=== PATIENT | male | born 1985 | race African-American/Black ===

== ENCOUNTER 2022-07-13 03:22 | Emergency (ER) | payer SELFPAY ==
[2022-07-13] VITALS (7 sets, daily range): BP systolic 117–145; BP diastolic 76–100; PULSE 94–124; RESP 18; TEMP 36.9; O2SAT 91–98; BMI 23.2
--- NOTE | 2022-07-13 03:55 | ECG_ITS ---
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 Measurements Intervals [place] Rate: 97 P: 57 NE: 166 QRS: 37 QRSD: 91 T: 47 QT: 306 QTc: 389 Interpretive Statements SINUS RHYTHM No previous ECG available for comparison Electronically Signed On 07-13-2022 17:08:29 CDT by Angel Jerez M.D. [id number]
[2022-07-13] MEDS: sodium chloride 0.9% 1,000 ML 999 ML IV (04:42)
[2022-07-13 04:46] LABS: Basophils % 0.1 %; Eosinophils % 0.3 %; Hematocrit 39.1 % (42.0-52.0); Hemoglobin 12.1 g/dL (11.7-16.6); Lymphocytes # 0.7 10^3/uL (0.8-4.8); Lymphocytes % 10.8 %; Mean Corpuscular HGB Conc 30.9 g/dL (30.0-36.0); Mean Corpuscular Hemoglobin 28.3 pg (28.0-34.0); Mean Corpuscular Volume 91.4 fl (80-94); Mean Platelet Volume 9.2 fL (7.4-10.4); Monocytes # 0.5 10^3/uL (0.2-0.9); Monocytes % 7.3 %; Neutrophils # 5.49 10^3/uL (1.8-7.7); Neutrophils % 81.4 %; Nucleated Red Blood Cells % 0 %; Platelet Count 220 10^3/cmm (130-400); Red Blood Count 4.28 10^6/uL (4.1-5.3); Red Cell Distribution Width 15.2 % (12.1-15.1); White Blood Count 6.8 10^3/uL (4.0-10.0)
--- NOTE | 2022-07-13 05:00 | PC.NURSE ---
patient postictal and uncooperative. Unable to perform EKG at this time. Dr. Dhaliwal notified, aware, and okay with waiting until patient becomes more back to baseline.
--- NOTE | 2022-07-13 05:01 | W.ED.SEIZURE ---
HPI - Seizure General: Chief Complaint: Seizure Stated Complaint: post seizure Time Seen by Provider: 07/13/22 03:24 Source: patient, family and EMS History of Present Illness: HPI Narrative: 37-year-old male with a history of seizure disorder. He was traveling with family back from [place] to [facility] after a of an aunt. He had been driving, and then made a stop at a gas station. A family member began to drive, 20 minutes later, they noticed him shaking in the back of a car. He was not responding to them. He appeared to continue to breathe. Family called 911. The episode lasted about 5 minutes. On EMS arrival the patient was confused and postictal. He was given Ativan 2 mg IM. He presents here quite lethargic. He does answer some simple yes/no questions MD complaint: seizure Onset (ago): minute(s) Description of Episode: loss of consciousness and tonic-clonic movement Duration of episode: 5 -: minutes(s) Witnessed: Yes - by Bystander Trauma: No Seizure History: Yes Possible Precipitating Event: lack of sleep and stress Associated symptoms: Reports confusion; Deny chest pain, fever(s) or short of breath Treatments prior to arrival: benzodiazepines Review of Systems Const: Denies: fever(s) ENMT: Denies: throat pain Card: Denies: chest pain Resp: Denies: dyspnea GI: Denies: abdominal pain Neuro: Reports: headache(s), confusion and seizure-like activity Physical Exam Const: GENERAL APPEARANCE: lethargic and ill appearing (Mild) ORIENTATION/CONSCIOUSNESS: Yes lethargic HENMT: COMMON NORMALS: normocephalic, atraumatic and Normal external nose present HEAD & SCALP: normocephalic and atraumatic FACE & SINUS: normal facial exam and face symmetric NOSE: Normal external nose present and Normal nares present Eye: COMMON NORMALS: Equal, round and reactive pupils present and EOMs intact bilaterally PUPIL: Yes Equal, round and reactive pupils present Neck/C-Spine: GENERAL: Yes trachea midline Chest: CHEST: Yes Symmetrical chest wall rise Resp: COMMON NORMALS: normal respiratory effort, No use of accessory muscles and clear to auscultation bilaterally AUSCULTATION: clear to auscultation bilaterally Cardio: COMMON NORMALS: regular rate and regular rhythm RATE: regular rate RHYTHM: regular rhythm GI: COMMON NORMALS: Normal to inspection, nondistended, normoactive bowel sounds present Extremity: COMMON NORMALS: no pedal edema Neuro: ЕКАТЕРИНА COMA SCALE: document GCS findings Екатерина coma scale eye opening: To sound Hardy coma scale verbal response: Confused Hardy coma scale motor response: Localising Екатерина coma scale total score: 12 SENSORIUM/ORIENTATION: Yes Orientation impaired, Yes lethargic and Yes somnolent CRANIAL NERVES: Yes CN normal except as noted GAIT: Yes Unable to assess gait MOTOR EXAM: Normal motor muscle tone present throughout, Motor abnormalities not present and No Tremors during motor activity present Course Vital Signs: Vital signs: Vital Signs Temperature 98.4 F 07/13/22 03:24 Pulse Rate 100 07/13/22 06:16 Respiratory Rate 18 07/13/22 06:16 Blood Pressure 139/94 07/13/22 06:16 Pulse Oximetry 98 07/13/22 06:16 Oxygen Delivery Me thod Room Air 07/13/22 06:16 MDM - Seizure MDM Narrative Medical decision making narrative: Patient lost control of his bowels during the episode. Patient is quite lethargic following administration of IM Ativan, and being in a postictal state. Researched his home medications. He appears to be taking Keppra. He may or may not of been taking this, as it was last filled last January it appears. He is loaded with 1 g. He is given IV fluids. Labs and head CT are pending. Provided he recovers from his postictal state appropriately, and normal laboratory, he will be allowed discharge. 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 No acute findings. Patient is beginning to wake. He is acting more appropriate. He helped move over to the CT scanner. He is still somewhat tired. He will be allowed discharge in a bit when he awakens some more, so that he may return home. Lab Data 07/13/22 04:40 07/13/22 04:40 Labs: Radiology Impressions Head CT 07/13/22 05:46 IMPRESSION: 1. Chronic infarction seen in the lateral aspect of the right temporal lobe. 2. There are no acute intracranial findings. Laboratory Results WBC 6.8 10^3/uL (4.0-10.0) 07/13/22 04:40 RBC 4.28 10^6/uL (4.1-5.3) 07/13/22 04:40 Hgb 12.1 g/dL (11.7-16.6) 07/13/22 04:40 Hct 39.1 % (42.0-52.0) L 07/13/22 04:40 MCV 91.4 fl (80-94) 07/13/22 04:40 MCH 28.3 pg (28.0-34.0) 07/13/22 04:40 MCHC 30.9 g/dL (30.0-36.0) 07/13/22 04:40 RDW 15.2 % (12.1-15.1) H 07/13/22 04:40 Plt Count 220 10^3/cmm (130-400) 07/13/22 04:40 MPV 9.2 fL (7.4-10.4) 07/13/22 04:40 Neut % (Auto) 81.4 % 07/13/22 04:40 Lymph % (Auto) 10.8 % 07/13/22 04:40 [place] % (Auto) 7.3 % 07/13/22 04:40 Eos % (Auto) 0.3 % 07/13/22 04:40 Baso % (Auto) 0.1 % 07/13/22 04:40 Neut # (Auto) 5.49 10^3/uL (1.8-7.7) 07/13/22 04:40 Lymph # (Auto) 0.7 10^3/uL (0.8-4.8) L 07/13/22 04:40 [place] # (Auto) 0.5 10^3/uL (0.2-0.9) 07/13/22 04:40 Eos # (Auto) 0.0 10^3/uL (0.0-0.8) 07/13/22 04:40 Baso # (Auto) 0.0 10^3/uL (0.0-0.1) 07/13/22 04:40 Nucleated RBC % (auto) 0 % 07/13/22 04:40 Nucleated RBCs # 0.0 /100WBC 07/13/22 04:40 Sodium 137 mmol/L (136-145) 07/13/22 04:40 Potassium 3.4 mmol/L (3.5-5.1) L 07/13/22 04:40 Chloride 100 mmol/L (98-107) 07/13/22 04:40 Carbon Dioxide 21 mmol/L (22-29) L 07/13/22 04:40 Anion Gap 19.4 (5-19) H 07/13/22 04:40 BUN 9 mg/dL (6-20) 07/13/22 04:40 Creatinine 1.2 mg/dL (0.7-1.2) 07/13/22 04:40 GFR Calculation 82.4 mL/min (90-130) L 07/13/22 04:40 Glucose 109 mg/dL (65-115) 07/13/22 04:40 Calculated Osmolality 283 mOsm/kg (285-295) L 07/13/22 04:40 Calcium 9.0 mg/dL (8.5-10.5) 07/13/22 04:40 Phosphorus 2.2 mg/dL (2.5-4.5) L 07/13/22 04:40 Magnesium 2.0 mg/dL (1.7-2.3) 07/13/22 04:40 Total Bilirubin 0.3 mg/dL (0.15-1.2) 07/13/22 04:40 AST 71 U/L (0-40) H 07/13/22 04:40 ALT 76 U/L (0-41) H 07/13/22 04:40 Alkaline Phosphatase 99 U/L (40-130) 07/13/22 04:40 Creatine Kinase 226 U/L (39-308) 07/13/22 04:40 Total Protein 6.8 g/dL (6.6-8.7) 07/13/22 04:40 Albumin 3.8 g/dL (3.5-5.2) 07/13/22 04:40 Globulin 3.0 g/dL (1.3-4.6) 07/13/22 04:40 Ethyl Alcohol < 10 mg/dL (0-10) 07/13/22 04:40 Discharge Plan Discharge Patient Disposition: Home Clinical Impression: Epileptic seizure Condition: Stable Prescriptions: New Keppra 500 mg tablet 500 mg PO BID Qty: 60 0RF Discharge Orders: Discharge ED (Routine); Ordered 07/13/22 Ordered By: Allen Dhaliwal Discharge Diet: Advance as tolerated Discharge Activity: Increase activity as tolerated Patient Instructions: Recurrent Seizures in Adults (ED) Activity Restrictions/Additional Instructions: Return or seek emergent medical care for repeated episodes of seizures, worsening mental status, worsening headache, other concerning symptoms. Follow-up with your doctor this week. Do not drive until cleared by a physician. Coding Level of Care Code ED Food And Nutrition Supervisor for Zuri Roldan
[2022-07-13 05:08] LABS: Alanine Aminotransferase 76 U/L (0-41); Albumin Level 3.8 g/dL (3.5-5.2); Alkaline Phosphatase 99 U/L (40-130); Anion Gap 19.4 (5-19); Aspartate Amino Transferase 71 U/L (0-40); Blood Urea Nitrogen 9 mg/dL (6-20); Carbon Dioxide 21 mmol/L (22-29); Chloride 100 mmol/L (98-107); Creatine Phosphokinase 226 U/L (39-308); Glomerular Filtration Rate 82.4 mL/min (90-130); Glucose 109 mg/dL (65-115); Osmolality Calculated 283 mOsm/kg (285-295); Phosphorus 2.2 mg/dL (2.5-4.5); Potassium 3.4 mmol/L (3.5-5.1); Sodium 137 mmol/L (136-145); Total Bilirubin 0.3 mg/dL (0.15-1.2); Total Protein 6.8 g/dL (6.6-8.7)
[2022-07-13 05:15] LABS: Alcohol Level < 10 mg/dL (0-10)
--- NOTE | 2022-07-13 05:46 | CTR_ITS ---
PROCEDURE INFORMATION: Exam: CT Head Without Contrast Exam date and time: 07/13/2022 6:00 AM Age: 37 years old Clinical indication: Other: Seizure TECHNIQUE: Imaging protocol: Computed tomography of the head without contrast. Radiation optimization: All CT scans at this facility use at least one of these dose optimization techniques: automated exposure control; mA and/or kV adjustment per patient size (includes targeted exams where dose is matched to clinical indication); or iterative reconstruction. REPORTING DATA: Count of CT and Cardiac NM exams in prior 12 months: This patient has received 0 known CTs and 0 known cardiac nuclear medicine studies in the 12 months prior to the current study. COMPARISON: No relevant prior studies available. RADIATION DOSE METRICS: Total DLP (mGy-cm): 1241.76 FINDINGS: Brain: There is hypoattenuation and encephalomalacia is seen within the lateral aspect of the right temporal lobe compatible with a chronic infarction. Cerebral ventricles: No ventriculomegaly. Paranasal sinuses: Visualized sinuses are unremarkable. No fluid levels. Mastoid air cells: Visualized mastoid air cells are well aerated. Bones/joints: Unremarkable. No acute fracture. Soft tissues: Unremarkable. CT/CT head wo con* [id number] IMPRESSION: 1. Chronic infarction seen in the lateral aspect of the right temporal lobe. 2. There are no acute intracranial findings.
--- NOTE | 2022-07-13 05:57 | PC.NURSE ---
Patient taken to CT by pathology tech via stretcher.
--- NOTE | 2022-07-13 06:18 | PC.NURSE ---
Patient still postictal and somewhat lethargic. Is unable to give urine specimen at this time. Dr. Dhaliwal stated urine is not vital at this time and can wait.
--- NOTE | 2022-07-13 06:29 | PC.NURSE ---
Dr. Dhaliwal stated to ambulate patient when he is more awake and alert.
--- NOTE | 2022-07-16 15:15 | DCPLANNER ---
vice president & general manager [employer] [place] called patient due to no primary care physician - no answer at this time.
== END 2022-07-13 08:34 | disposition home or self-care (01) ==
PROVIDERS: Emergency Provider Emergency Medicine
DX: G40.909 Epilepsy, unspecified, not intractable, without status epilepticus (principal)
CPT/HCPCS: 70450; 80053; 80307; 82550; 83735; 84100; 85025; 93005; 96365; 99285; J1953; J7030